=== PATIENT | male | born 1975 | race Caucasian/White ===

== ENCOUNTER 2016-10-04 13:17 | Emergency (ER) | payer OTHER ==
[2016-10-04 14:24] LABS: BASOPHIL 0.3 % (0-2); EOSINOPHIL 1.1 % (0-5); HCT 47.4 % (42.0-52.0); HGB 16.7 g/dl (13.2-18.0); LYMPHOCYTE 11.5 % (15-48); MCH 31.7 pg (25.0-31.0); MCHC 35.2 g/dL (32.0-36.0); MCV 89.9 fL (78.0-100.0); MONOCYTE 5.2 % (0-12); NEUTROPHIL 81.9 % (41-80); PLT 233 K/uL (150-400); RBC 5.27 M/uL (4.70-6.00); RDW 13.7 % (11.5-14.0); WBC 13.7 K/uL (4.0-10.5)
[2016-10-04 14:43] LABS: CREATININE 1.1 mg/dL (0.7-1.2)
== END 2016-10-04 15:06 | disposition home or self-care (01) ==
LOC: FER 13:17
PROVIDERS: Emergency Medicine
DX: J20.9 Acute bronchitis, unspecified (principal); J11.1 Influenza due to unidentified influenza virus with other respiratory manifestations; I10 Essential (primary) hypertension; Z90.49 Acquired absence of other specified parts of digestive tract
CPT/HCPCS: 36415; 71020; 80048; 84484; 85025; 87804; 87899; 93005